=== PATIENT | male | born 1990 | race African-American/Black ===

== ENCOUNTER → 2021-02-06 | Outpatient (CLI) | payer OTHER ==
--- NOTE | 2021-02-06 13:25 | RAD ---
Scrotal ultrasound 02/06/2021 INDICATION: Left testicular palpable lump x5 days COMPARISON STUDY: None Discussion: Ultrasound evaluation of the scrotum was performed. Static images are submitted to PACS. The bilateral testes are normal in appearance measuring 4.2 x 2.7 x 1.9 cm on the right and 4.2 x 2.9 x 1 point centimeters on the left. Normal flow to the bilateral testes noted. No significant hydroce le is identified. The right epididymis is unremarkable in appearance. The left epididymal tail appear s to be prominent with increased blood flow. Findings could represent epididymitis. IMPRESSION: Possible epididymitis involving the left epididymal tail. Correlate with clinical exam fi ndings. Recommend short-term post therapeutic follow-up ultrasound to ensure resolution. Electronically signed by: Pasquale Tripp MD (02/06/2021 1:23 PM) [id number]
== END ==
LOC: US 11:33
PROVIDERS: ATTEND Preventive Medicine Occupational Medicine
DX: N50.812 Left testicular pain (principal)
CPT/HCPCS: 76870